=== PATIENT | male | born 1990 | race Caucasian/White ===

== ENCOUNTER 2018-03-30 18:27 | Inpatient (IN) | payer BC, OTHER ==
[~2018-03-30] VITALS: Ht 177.8 cm; Wt 129.9 kg
[2018-03-30] MEDS ORDERED: SODIUM CHLORIDE 0.9% 500ML 500 ML IV STA (18:41)
[2018-03-30 19:03] LABS: BASO % 0.2 %; BASO ABS # 0.03 K/uL (0-0.2); EOS % 0.4 %; EOS ABS # 0.07 K/uL (0-0.5); HEMATOCRIT 43.4 % (42-52); HEMOGLOBIN 15.5 g/dL (14.0-18.0); IG# 0.05 K/uL (0.00-0.02); LYMPH % 13.3 %; MEAN CELL VOLUME 86.1 fL (80-100); MEAN CORPUSCULAR HEMOGLOBIN 30.8 pg (25-34); MEAN CORPUSCULAR HGB CONC 35.7 g/dl (32-36); MEAN PLATELET VOLUME 10.9 fL (7.4-10.4); MONO % 6.9 %; MONO ABS # 1.15 K/uL (0.11-0.59); NEUT % 78.9 %; NEUT ABS # 13.09 K/uL (1.4-6.5); PLATELET COUNT 265 K/uL (130-400); RED CELL DISTRIBUTION WIDTH CV 13.3 % (11.5-14.5); RED CELL DISTRIBUTION WIDTH SD 41.5 fL (36.4-46.3); WHITE BLOOD COUNT 16.59 K/uL (4.8-10.8)
--- NOTE | 2018-03-30 19:16 | EMERGENCY ROOM VISIT NOTE ---
History Report prepared by Filemon: Audra Beckham Under the Supervision of: Dr. Octaviaon Draper M.D. First contact with patient: 18:31 Chief Complaint: ABDOMINAL PAIN Stated Complaint: STOMACH PAIN History of Present Illness The patient is a 27 year old male who presents to the Emergency Room with complaints of constant abdominal pain starting around 13 hours ago. The patient was in [place] visiting a friend. He was roused from sleep by mid to right upper abdominal pain at 0500 this morning. The pain has been constant throughout the day. He went to [facility] where he had imaging which showed numerous gallstones and the doctors recommended removal. The patient decided to come here so he could be closer to home. The pain was a 10/10 at its worst. It did go through to his back. He was given Oxycodone for the trip here. He currently rates his discomfort as a 6/10 with the pain medications. He tried self induced vomiting to no significant relief. He denies any diarrhea or urinary symptoms. He denies any history of gallbladder issues. He has not noticed any discomfort with eating fatty foods. He denies any other medical problems or abdominal surgeries. He does not smoke. He last ate 18 hours ago. Results from [facility] show that around 0930 this morning, the patient had a white count of 12.5, hemoglobin of 16.1, an undetectable troponin. He had a mild elevation of his ALT at 58. Lipase was normal, glucose 115, creatinine 0.98, total bilirubin 0.4, alk phos 48. Urinalysis was negative for infection. Ultrasound of gallbladder showed gallstones and gallbladder distension. CT abdomen/pelvis showed no acute problems. He was seen by the ED physician and general surgeon at [facility]. He was not admitted and was discharged from the ED. He also had an EKG and chest X-ray which were unremarkable. Source of History: patient Onset: 13 hours ago Position: abdomen (RUQ) Symptom Intensity: 10/10 at worst Timing: constant Modifying Factors (Relieving): other (oxycodone) Associated Symptoms: + back pain, No diarrhea, No urinary symptoms Review of Systems See HPI for pertinent positives & negatives. A total of 10 systems reviewed and were otherwise negative. Past Medical & Surgical Medical Problems: (1) Symptomatic cholelithiasis Surgical Problems: (1) S/P tonsillectomy Family History No pertinent family history stated. Social History Smoking Status: Never Smoker Marital Status: Current/Historical Medications No Active Prescriptions or Reported Meds Allergies Coded Allergies: BEE STING (Verified Allergy, Intermediate, Hives/Swelling, 03/30/18) Physical Exam Vital Signs Date Time Temp Pulse Resp B/P (MAP) Pulse Ox O2 Delivery O2 Flow Rate FiO2 03/30/18 20:01 146/94 03/30/18 19:36 70 100 03/30/18 19:31 147/94 03/30/18 19:27 75 100 03/30/18 19:01 148/93 03/30/18 18:57 79 99 Room Air 03/30/18 18:55 22 151/96 03/30/18 18:42 159/96 03/30/18 18:29 36.8 81 16 169/98 100 Room Air Physical Exam GENERAL: Patient is in no acute distress. HEENT: No acute trauma, normocephalic atraumatic, mucous membranes moist, no nasal congestion, no scleral icterus. NECK: No stridor, no adenopathy, no meningismus, trachea is midline. LUNGS: Clear to auscultation bilaterally, no wheeze, no rhonchi, breath sounds equal. HEART: Without murmurs gallops or rubs, regular rate and rhythm. ABDOMEN: Soft, moderately tender in the epigastrium and RUQ, bowel sounds positive, no hernias, no peritonitis. EXTREMITIES: No cyanosis or edema, full range of motion of all the joints without pain or difficulty, no signs for acute trauma. NEUROLOGIC: Oriented x 3, no acute motor or sensory deficits, no focal weakness. SKIN: No rash, no jaundice, no diaphoresis. Medical Decision & Procedures Laboratory Results 03/30/18 18:45 Red Blood Count 5.04, Mean Corpuscular Volume 86.1, Mean Corpuscular Hemoglobin 30.8, Mean Corpuscular Hemoglobin Concent 35.7, Mean Platelet Volume 10.9, Neutrophils (%) (Auto) 78.9, Lymphocytes (%) (Auto) 13.3, Monocytes (%) (Auto) 6.9, Eosinophils (%) (Auto) 0.4, Basophils (%) (Auto) 0.2, Neutrophils # (Auto) 13.09, Lymphocytes # (Auto) 2.20, Monocytes # (Auto) 1.15, Eosinophils # (Auto) 0.07, Basophils # (Auto) 0.03 03/30/18 18:45 Test 03/30/18 18:45 White Blood Count 16.59 K/uL (4.8-10.8) Red Blood Count 5.04 M/uL (4.7-6.1) Hemoglobin 15.5 g/dL (14.0-18.0) Hematocrit 43.4 % (42-52) Mean Corpuscular Volume 86.1 fL (80-100) Mean Corpuscular Hemoglobin 30.8 pg (25-34) Mean Corpuscular Hemoglobin Concent 35.7 g/dl (32-36) Platelet Count 265 K/uL (130-400) Mean Platelet Volume 10.9 fL (7.4-10.4) Neutrophils (%) (Auto) 78.9 % Lymphocytes (%) (Auto) 13.3 % Monocytes (%) (Auto) 6.9 % Eosinophils (%) (Auto) 0.4 % Basophils (%) (Auto) 0.2 % Neutrophils # (Auto) 13.09 K/uL (1.4-6.5) Lymphocytes # (Auto) 2.20 K/uL (1.2-3.4) Monocytes # (Auto) 1.15 K/uL (0.11-0.59) Eosinophils # (Auto) 0.07 K/uL (0-0.5) Basophils # (Auto) 0.03 K/uL (0-0.2) RDW Standard Deviation 41.5 fL (36.4-46.3) RDW Coefficient of Variation 13.3 % (11.5-14.5) Immature Granulocyte % (Auto) 0.3 % Immature Granulocyte # (Auto) 0.05 K/uL (0.00-0.02) Anion Gap 6.0 mmol/L (3-11) Est Creatinine Clear Calc Drug Dose 152.4 ml/min Estimated GFR () 120.5 Estimated GFR (Non- 103.9 BUN/Creatinine Ratio 13.2 (10-20) Calcium Level 9.1 mg/dl (8.5-10.1) Total Bilirubin 0.9 mg/dl (0.2-1) Aspartate Amino Transf (AST/SGOT) 254 U/L (15-37) Alanine Aminotransferase (ALT/SGPT) 339 U/L (12-78) Alkaline Phosphatase 63 U/L (45-117) Total Protein 8.1 gm/dl (6.4-8.2) Albumin 4.1 gm/dl (3.4-5.0) Globulin 4.0 gm/dl (2.5-4.0) Albumin/Globulin Ratio 1.0 (0.9-2) Lipase 179 U/L (73-393) Laboratory results reviewed by me. Medications Administered Medications (Trade) Dose Ordered Sig/Nick Route Start Time Stop Time Status Last Admin Dose Admin Sodium Chloride 500 ml @ 999 mls/hr Q31M STAT IV 03/30/18 18:41 03/30/18 19:11 DC 03/30/18 18:54 999 MLS/HR Morphine Sulfate (MoRPHine SULFATE INJ) 4 mg Q15M PRN IV 03/30/18 19:45 03/30/18 21:48 DC 03/30/18 20:01 4 MG Ondansetron HCl (Zofran Inj) 4 mg NOW STAT IV 03/30/18 19:33 03/30/18 19:34 DC 03/30/18 19:59 4 MG ED Course 183: The patient was evaluated in room C10. A complete history and physical exam was performed. 1840: Sodium Chloride 500 ml @ 999 mls/hr IV. 1911: I discussed the patient's case with Weston Donis PA-C [facility] general surgery. The patient will be evaluated for further management. 1917: Upon reexamination the patient is resting comfortably. I discussed results and treatment plan with the patient. He verbalizes agreement and understanding. The patient will be evaluated for further management. 1931: The patient is requesting pain medications. 1932: Zofran Inj 4 mg IV. 1943: Surgery is here evaluating the patient. I spoke with them. 1944: Morphine Sulfate 4 mg IV. Medical Decision Differential diagnoses considered include biliary colic, acute cholecystitis, pancreatitis, renal colic, UTI, pneumonia, appendicitis. There is a leukocytosis at 16,000, this could be consistent with infection or just his pain. Of note, the white count has increased from earlier today. There is no significant electrolyte abnormality or kidney failure. There was elevation to the AST and ALT, these numbers have increased from earlier today as well. No evidence for pancreatitis by our testing. Patient did receive IV saline, IV morphine and IV Zofran. I did speak with on- call general surgery. The patient was evaluated in this ER by surgery and will be brought into the hospital for eventual cholecystectomy. He is suffering from ongoing biliary colic. Medication Reconcilliation Current Medication List: was personally reviewed by me Blood Pressure Screening Patient's blood pressure: Elevated blood pressure Referred Consults Time Called: 1838 Consulting Physician[facility] Returned Call: 1911 I discussed the patient's case with him. The patient will be evaluated for further management. Impression Primary Impression: Biliary colic Additional Impressions: Liver enzyme elevation Leukocytosis Scribe Attestation The scribe's documentation has been prepared under my direction and personally reviewed by me in its entirety. I confirm that the note above accurately reflects all work, treatment, procedures, and medical decision making performed by me. Departure Information Dispostion Being Evaluated By Surgeon Prescriptions No Active Prescriptions or Reported Meds Referrals Jelani Alegria M.D. (PCP) Patient Instructions My [facility] Problem Qualifiers
[2018-03-30 19:21] LABS: ALBUMIN 4.1 gm/dl (3.4-5.0); CALCIUM 9.1 mg/dl (8.5-10.1); CREATININE 0.99 mg/dl (0.60-1.40); POTASSIUM 3.8 mmol/L (3.5-5.1)
[2018-03-30 19:23] LABS: TOTAL PROTEIN 8.1 gm/dl (6.4-8.2)
[2018-03-30] MEDS ORDERED: ONDANSETRON INJ 2 MG/ML 2 ML VIAL IV STA (19:33)
[2018-03-30] MEDS ORDERED: MoRPHine SULFATE 4 MG/ML 1 ML CARP\\VIAL IV PRN (19:45)
--- NOTE | 2018-03-30 20:13 | Surgery Consultation ---
Consultation Date of Consultation: Mar 30, 2018. Attending Physician: Reason for Consultation: RUQ pain History of Present Illness patient is a 29M who presented to [facility] earlier today. He was found to have symptomatic cholelithiasis but was discharged home as he is from this area, his pain was controlled and he preferred to follow-up with a surgeon in town here. He presented to the ED this evening due to continued RUQ pain. Denies vomiting but states he has felt a little nauseated. Reports some off and on fever/chills. Denies recent illness. He is moving his bowels and urinating without issue. Denies history of previous abdominal surgeries. Denies use of blood thinning or anticoagulant medications. FHx positive for gallbladder disease (father). Now that he thinks about it he feels he may have had more mild gallbladder episodes in the past. WBC 16.59. AST 254, ALT 339. All other labs WNL. RUQ U/S at [facility] shows multiple gallstones without evidence of acute cholecystitis. Past Medical/Surgical History Medical Problems: (1) Biliary colic Status: Acute (2) Leukocytosis Status: Acute (3) Liver enzyme elevation Status: Acute Social History Smoking Status: Never Smoker Marital Status: Allergies Coded Allergies: BEE STING (Verified Allergy, Intermediate, Hives/Swelling, 03/30/18) Home Medications No Active Prescriptions or Reported Meds Current Inpatient Medications Current Inpatient Medications Medications (Trade) Dose Ordered Sig/Nick Route Start Time Stop Time Status Last Admin Dose Admin Morphine Sulfate (MoRPHine SULFATE INJ) 4 mg Q15M PRN IV 03/30/18 19:45 04/13/18 19:44 03/30/18 20:01 4 MG Review of Systems Constitutional: + fever, + chills Respiratory: No shortness of breath Cardiovascular: No chest pain Abdomen: + pain (RUQ), + nausea, No vomiting, No diarrhea, No constipation Genitourinary - Male: No dysuria Physical Exam Date Time Temp Pulse Resp B/P (MAP) Pulse Ox O2 Delivery O2 Flow Rate FiO2 03/30/18 19:31 147/94 03/30/18 19:27 75 100 03/30/18 19:01 148/93 03/30/18 18:57 79 99 Room Air 03/30/18 18:55 22 151/96 4/30/18 18:42 159/96 03/30/18 18:29 36.8 81 16 169/98 100 Room Air General Appearance: WD/WN, no apparent distress Head: normocephalic, atraumatic ENT: hearing grossly normal Respiratory/Chest: no respiratory distress, no accessory muscle use Abdomen/GI: soft, no organomegaly, no pulsatile mass, + tenderness Neurologic/Psych: alert, normal mood/affect, oriented x 3 Skin: normal color, warm/dry Laboratory Results Last 24 Hours Test 03/30/18 18:45 White Blood Count 16.59 K/uL Red Blood Count 5.04 M/uL Hemoglobin 15.5 g/dL Hematocrit 43.4 % Mean Corpuscular Volume 86.1 fL Mean Corpuscular Hemoglobin 30.8 pg Mean Corpuscular Hemoglobin Concent 35.7 g/dl Platelet Count 265 K/uL Mean Platelet Volume 10.9 fL Neutrophils (%) (Auto) 78.9 % Lymphocytes (%) (Auto) 13.3 % Monocytes (%) (Auto) 6.9 % Eosinophils (%) (Auto) 0.4 % Basophils (%) (Auto) 0.2 % Neutrophils # (Auto) 13.09 K/uL Lymphocytes # (Auto) 2.20 K/uL Monocytes # (Auto) 1.15 K/uL Eosinophils # (Auto) 0.07 K/uL Basophils # (Auto) 0.03 K/uL RDW Standard Deviation 41.5 fL RDW Coefficient of Variation 13.3 % Immature Granulocyte % (Auto) 0.3 % Immature Granulocyte # (Auto) 0.05 K/uL Sodium Level 137 mmol/L Potassium Level 3.8 mmol/L Chloride Level 104 mmol/L Carbon Dioxide Level 27 mmol/L Anion Gap 6.0 mmol/L Blood Urea Nitrogen 13 mg/dl Creatinine 0.99 mg/dl Est Creatinine Clear Calc Drug Dose 152.4 ml/min Estimated GFR () 120.5 Estimated GFR (Non- 103.9 BUN/Creatinine Ratio 13.2 Random Glucose 99 mg/dl Calcium Level 9.1 mg/dl Total Bilirubin 0.9 mg/dl Aspartate Amino Transf (AST/SGOT) 254 U/L Alanine Aminotransferase (ALT/SGPT) 339 U/L Alkaline Phosphatase 63 U/L Total Protein 8.1 gm/dl Albumin 4.1 gm/dl Globulin 4.0 gm/dl Albumin/Globulin Ratio 1.0 Lipase 179 U/L Assessment & Plan Symptomatic cholelithiasis, possible early acute appendicitis. Symptoms seem to be related to gallbladder. Elevated LFTs concerning for possible CBD stones. Will admit overnight and recheck LFTs in AM. If further elevation may consider GI consult for possible MRCP/ERCP If no further elevation or decrease in LFTs, Plan for laparoscopic cholecystectomy, possible intraoperative cholangiogram, possible open with Dr. Mills tomorrow. Risks, benefits, alternatives to the procedure were discussed - all questions answered. Admit med/surg, NPO after midnight, IV fluids, IV Mefoxin 2g Q6H, pain medication prn, anti-emetics prn, SCDs. OR notified. Findings discussed with Dr. Mills. Please contact with questions or concerns.
[2018-03-30] MEDS ORDERED: ONDANSETRON INJ 2 MG/ML 2 ML VIAL IV PRN (20:15)
[2018-03-30] MEDS ORDERED: HYDROmorphone INJ 0.5 MG/0.5 ML SYR IV PRN (20:15)
[2018-03-30 21:38] VITALS: BP 138/81; PULSE 78; TEMP 36.8; O2SAT 100; Ht 177.8 cm; Wt 129.9 kg
[2018-03-30] MEDS: SODIUM CHLORIDE 0.9% 1000ML 1,000 ML IV SCH (22:12)
[2018-03-30] MEDS: ACETAMINOPHEN IV 1,000 MG in EMPTY BAG 0 ML IV SCH (22:29)
[2018-03-30 23:10] VITALS: BP 130/75; PULSE 65; TEMP 37; O2SAT 95
[2018-03-30] MEDS: CEFOXITIN IV 2,000 MG in DEXTROSE 5% 50ML 50 ML IV SCH (23:31)
[2018-03-31] MEDS: CEFOXITIN IV 2,000 MG in DEXTROSE 5% 50ML 50 ML IV SCH ×3 (04:12→15:42)
[2018-03-31 05:20] LABS: BASO % 0.3 %; BASO ABS # 0.03 K/uL (0-0.2); EOS % 3.6 %; EOS ABS # 0.38 K/uL (0-0.5); HEMATOCRIT 41.1 % (42-52); HEMOGLOBIN 14.4 g/dL (14.0-18.0); IG# 0.03 K/uL (0.00-0.02); LYMPH % 25.4 %; LYMPH ABS # 2.69 K/uL (1.2-3.4); MEAN CELL VOLUME 86.9 fL (80-100); MEAN CORPUSCULAR HEMOGLOBIN 30.4 pg (25-34); MEAN PLATELET VOLUME 10.8 fL (7.4-10.4); MONO % 7.4 %; MONO ABS # 0.79 K/uL (0.11-0.59); NEUT ABS # 6.69 K/uL (1.4-6.5); PLATELET COUNT 248 K/uL (130-400); RED CELL DISTRIBUTION WIDTH CV 13.4 % (11.5-14.5); RED CELL DISTRIBUTION WIDTH SD 42.3 fL (36.4-46.3); WHITE BLOOD COUNT 10.61 K/uL (4.8-10.8)
[2018-03-31] MEDS: ACETAMINOPHEN IV 1,000 MG in EMPTY BAG 0 ML IV SCH ×3 (05:39→22:04)
[2018-03-31 05:56] LABS: ALBUMIN 3.4 gm/dl (3.4-5.0); CALCIUM 8.7 mg/dl (8.5-10.1); CREATININE 1.51 mg/dl (0.60-1.40); POTASSIUM 3.8 mmol/L (3.5-5.1)
[2018-03-31 06:04] LABS: TOTAL PROTEIN 6.8 gm/dl (6.4-8.2)
[2018-03-31 07:06] VITALS: BP 119/75; PULSE 61; TEMP 36.8; O2SAT 95
[2018-03-31] MEDS: SODIUM CHLORIDE 0.9% 1000ML 1,000 ML IV SCH ×3 (08:04→22:04)
--- NOTE | 2018-03-31 13:43 | Surgery Progress Note ---
Surgery Progress Note Date of Service March 31, 2018. Subjective pt still having upper abdominal pain but it has improved since admission. starting to feel hungry. Objective Vital Signs: Date Time Temp Pulse Resp B/P (MAP) Pulse Ox O2 Delivery O2 Flow Rate FiO2 03/31/18 07:50 Room Air 03/31/18 07:06 36.8 61 18 119/75 (90) 95 Room Air 03/30/18 23:30 Room Air 03/30/18 23:10 37.0 65 18 130/75 (93) 95 Room Air 03/30/18 21:38 36.8 78 16 138/81 (100) 100 Room Air 03/30/18 21:38 Room Air 03/30/18 21:06 72 98 03/30/18 21:01 127/106 03/30/18 20:41 72 18 99 03/30/18 20:32 142/84 03/30/18 20:11 65 100 03/30/18 20:06 73 20 98 Room Air 03/30/18 20:01 146/94 03/30/18 19:36 70 100 03/30/18 19:31 147/94 03/30/18 19:27 75 100 03/30/18 19:01 148/93 03/30/18 18:57 79 99 Room Air 03/30/18 18:55 22 151/96 03/30/18 18:42 159/96 03/30/18 18:29 36.8 81 16 169/98 100 Room Air General Appearance: no apparent distress Head: atraumatic Neck: supple, trachea midline Respiratory/Chest: no respiratory distress, no accessory muscle use Abdomen: non distended, soft, + pertinent finding (minimal RUQ and epigastric tenderness) Laboratory Results: Results Past 24 Hours Test 03/30/18 18:45 03/31/18 04:52 Range/Units White Blood Count 16.59 10.61 4.8-10.8 K/uL Red Blood Count 5.04 4.73 4.7-6.1 M/uL Hemoglobin 15.5 14.4 14.0-18.0 g/dL Hematocrit 43.4 41.1 42-52 % Mean Corpuscular Volume 86.1 86.9 80-100 fL Mean Corpuscular Hemoglobin 30.8 30.4 25-34 pg Mean Corpuscular Hemoglobin Concent 35.7 35.0 32-36 g/dl Platelet Count 265 248 130-400 K/uL Mean Platelet Volume 10.9 10.8 7.4-10.4 fL Neutrophils (%) (Auto) 78.9 63.0 % Lymphocytes (%) (Auto) 13.3 25.4 % Monocytes (%) (Auto) 6.9 7.4 % Eosinophils (%) (Auto) 0.4 3.6 % Basophils (%) (Auto) 0.2 0.3 % Neutrophils # (Auto) 13.09 6.69 1.4-6.5 K/uL Lymphocytes # (Auto) 2.20 2.69 1.2-3.4 K/uL Monocytes # (Auto) 1.15 0.79 0.11-0.59 K/uL Eosinophils # (Auto) 0.07 0.38 0-0.5 K/uL Basophils # (Auto) 0.03 0.03 0-0.2 K/uL RDW Standard Deviation 41.5 42.3 36.4-46.3 fL RDW Coefficient of Variation 13.3 13.4 11.5-14.5 % Immature Granulocyte % (Auto) 0.3 0.3 % Immature Granulocyte # (Auto) 0.05 0.03 0.00-0.02 K/uL Sodium Level 137 139 136-145 mmol/L Potassium Level 3.8 3.8 3.5-5.1 mmol/L Chloride Level 104 107 98-107 mmol/L Carbon Dioxide Level 27 27 21-32 mmol/L Anion Gap 6.0 5.0 3-11 mmol/L Blood Urea Nitrogen 13 13 7-18 mg/dl Creatinine 0.99 1.51 0.60-1.40 mg/dl Est Creatinine Clear Calc Drug Dose 152.4 99.5 ml/min Estimated GFR () 120.5 72.3 Estimated GFR (Non- 103.9 62.4 BUN/Creatinine Ratio 13.2 8.9 10-20 Random Glucose 99 104 70-99 mg/dl Calcium Level 9.1 8.7 8.5-10.1 mg/dl Total Bilirubin 0.9 1.5 0.2-1 mg/dl Aspartate Amino Transf (AST/SGOT) 254 260 15-37 U/L Alanine Aminotransferase (ALT/SGPT) 339 428 12-78 U/L Alkaline Phosphatase 63 69 45-117 U/L Total Protein 8.1 6.8 6.4-8.2 gm/dl Albumin 4.1 3.4 3.4-5.0 gm/dl Globulin 4.0 2.5-4.0 gm/dl Albumin/Globulin Ratio 1.0 0.9-2 Lipase 179 73-393 U/L Direct Bilirubin 0.4 0-0.2 mg/dl Microbiology Results 03/30/18 MRSA DNA Surveillance Screen - Final, Complete Specimen Negative for MRSA by DNA Probe Assessment & Plan symptomatic gallstones Tbili increased today so will put a hold on lap fritz MRCP today GI consult. pending labs and MRCP may need ERCP prior to lap fritz rec lap fritz prior to d/c.
--- NOTE | 2018-03-31 15:21 | DIAGNOSTIC IMAGING REPORT ---
MRCP CLINICAL HISTORY: Cholelithiasis. COMPARISON STUDY: No priors. TECHNIQUE: Abdominal MRCP is performed utilizing various T2-weighted sequences in the axial and coronal planes. IV contrast was not administered for this examination. 3-D reformats are created and assessed. FINDINGS: There are numerous gallstones identified within the gallbladder lumen. Stones appear to be lodged in the region of the gallbladder neck. The gallbladder is distended, and there is gallbladder wall thickening and edema. Trace pericholecystic fluid is noted. The appearance is consistent with acute cholecystitis. There is no intra or extrahepatic biliary ductal dilatation. The common bile duct measures up to 3 mm in diameter. There are no filling defects to suggest choledocholithiasis. The pancreatic duct is normal in caliber and barely discernible. The liver is enlarged, measuring 20 cm in length. Hepatic steatosis is suggested. The spleen, pancreas, kidneys, and adrenal glands are grossly normal. There is no abdominal ascites or pleural effusion. No abdominal lymphadenopathy is identified. The abdominal aorta is normal in caliber. The imaged osseous structures demonstrate normal marrow signal intensity. IMPRESSION: 1. Cholelithiasis with evidence of acute cholecystitis. 2. There is no intra or extrahepatic biliary ductal dilatation, and no evidence of choledocholithiasis. 3. Hepatomegaly and suspect hepatic steatosis. Electronically signed by: Octaviano Braxton M.D. 03/31/2018 3:20 PM Dictated Date/Time: 03/31/2018 3:16 PM
[2018-03-31 15:33] VITALS: BP 123/75; PULSE 75; TEMP 37.2; O2SAT 95
--- NOTE | 2018-03-31 16:29 | Progress Note ---
Progress Note Date of Service March 31, 2018. Progress Note feeling better this afternoon MRCP negative for filling defect will plan for lap fritz in AM, possible IOC depending on AM labs
[2018-03-31] MEDS: HYDROmorphone INJ 2 MG/ML SYR/VIAL IV PRN ×2 (18:08→22:09)
--- NOTE | 2018-03-31 21:05 | GASTROINTESTINAL CONSULTATION ---
DATE OF CONSULTATION: 03/31/2018 REASON FOR EVALUATION: Cholecystitis with abnormal liver tests. HISTORY OF PRESENT ILLNESS: The patient is a 27-year-old who presented to the Emergency Room after being seen previously in the [place] [facility] with acute onset right upper quadrant pain that awakened him from sleep at 5:00 in the morning. Pain was constant throughout the day. In the Emergency Room at [place], he was found to have numerous gallstones in his gallbladder. His common bile duct was 3 mm in diameter and his liver tests showed a slightly elevated ALT and AST, but a normal alkaline phosphatase. The ultrasound also showed somewhat of a fatty liver. A cholecystectomy was recommended, but because the patient lives in [facility], he requested to be discharged to have the surgery done here. He has been admitted to the hospital and underwent an MRCP, which showed numerous gallstones in the gallbladder and some of them jammed in the neck of the gallbladder with findings of acute cholecystitis, common bile duct is only 3 mm, but there are no filling defects to suggest common bile duct stones. Since being hospitalized, the patient has been started on IV antibiotics. PAST MEDICAL HISTORY: Much remarkable for tonsillectomy. MEDICATIONS: None. ALLERGIES: BEE STINGS. FAMILY HISTORY: Positive for gallstones in his father. SOCIAL HISTORY: Patient is , does not smoke. REVIEW OF SYSTEMS: Negative for 12 systems. PHYSICAL EXAMINATION: GENERAL: Patient is overweight, in no acute distress. VITAL SIGNS: Blood pressure is 146/94, pulse 70, room air oxygen saturation is 100%. ABDOMEN: Shows tenderness in the right upper quadrant with positive Cheek sign. LABORATORY DATA: Show white count of 16.59, hemoglobin 15.5, platelets 265,000. Liver profile showed a bilirubin of 0.9, AST 254, ALT 339, alkaline phosphatase 63. IMPRESSION: The patient has acute cholecystitis without any common bile duct stones. The elevated transaminases could be from just the infection and alone or his fatty liver as well. There is no indication for a preoperative ERCP at this time. The patient will continue on his IV antibiotics and surgery is planned for tomorrow. We have no further input and no further suggestions at this time. Please call us if you need any further GI input.
[2018-03-31 23:08] VITALS: BP 114/69; PULSE 74; TEMP 37.1; O2SAT 94
[2018-04-01] VITALS (9 sets, daily range): BP systolic 108–137; BP diastolic 64–85; PULSE 66–99; TEMP 36.7–37.1; O2SAT 93–98
[2018-04-01] MEDS: SODIUM CHLORIDE 0.9% 1000ML 1,000 ML IV SCH ×2 (04:41→11:07)
[2018-04-01 05:22] LABS: BASO % 0.4 %; BASO ABS # 0.04 K/uL (0-0.2); EOS ABS # 0.41 K/uL (0-0.5); HEMOGLOBIN 13.8 g/dL (14.0-18.0); IG# 0.03 K/uL (0.00-0.02); LYMPH % 29.2 %; LYMPH ABS # 2.99 K/uL (1.2-3.4); MEAN CELL VOLUME 87.5 fL (80-100); MEAN CORPUSCULAR HEMOGLOBIN 30.2 pg (25-34); MEAN CORPUSCULAR HGB CONC 34.5 g/dl (32-36); MEAN PLATELET VOLUME 10.8 fL (7.4-10.4); MONO % 10.1 %; MONO ABS # 1.04 K/uL (0.11-0.59); NEUT ABS # 5.74 K/uL (1.4-6.5); PLATELET COUNT 250 K/uL (130-400); RED CELL DISTRIBUTION WIDTH CV 13.3 % (11.5-14.5); RED CELL DISTRIBUTION WIDTH SD 42.4 fL (36.4-46.3); WHITE BLOOD COUNT 10.25 K/uL (4.8-10.8)
[2018-04-01] MEDS: ACETAMINOPHEN IV 1,000 MG in EMPTY BAG 0 ML IV SCH (05:35)
[2018-04-01 05:52] LABS: ALBUMIN 3.3 gm/dl (3.4-5.0); CALCIUM 8.6 mg/dl (8.5-10.1); CREATININE 0.97 mg/dl (0.60-1.40); POTASSIUM 4.1 mmol/L (3.5-5.1)
[2018-04-01 05:54] LABS: TOTAL PROTEIN 6.8 gm/dl (6.4-8.2)
[2018-04-01] MEDS ORDERED: EpHEDrine SULFATE INJ 50 MG/ML AMP IV PRN (06:30)
[2018-04-01] MEDS ORDERED: PROMETHAZINE HCL INJ 12.5 MG in SODIUM CHLORIDE 0.9% 50ML 50 ML IV PRN (06:30)
[2018-04-01] MEDS ORDERED: ATROPINE SULFATE 0.1 MG/ML 5ML SYR IV PRN (06:30)
[2018-04-01] MEDS ORDERED: ONDANSETRON INJ 2 MG/ML 2 ML VIAL IV PRN ×2 (06:30→08:45)
[2018-04-01] MEDS ORDERED: FENTANYL CITRATE INJ 50 MCG/1 ML 2 ML VIAL IV PRN (06:30)
[2018-04-01] MEDS ORDERED: HYDROmorphone INJ 2 MG/ML SYR/VIAL IV PRN (06:30)
--- NOTE | 2018-04-01 06:53 | History & Physical Bridge Note ---
H&P Re-Evaluation Bridge Note: I have examined the patient, reviewed the History & Physical and in the interval since the performance of the History & Physical I have noted the following changes of clinical significance: No changes noted MRCP only shows acute fritz. plan lap fritz. discussed options/risks ( bleeding/infection/dvt/pe/injury to an organ/bile leaks etc..) questions answered. will proceed with lap fritz today.
[2018-04-01] MEDS ORDERED: GLYCOPYRROLATE INJ 0.2 MG/ML VIAL ONE (07:01)
[2018-04-01] MEDS ORDERED: PROPOFOL IV EMULSION 10 MG/ML 20 ML VIAL ONE (07:01)
[2018-04-01] MEDS ORDERED: LIDOCAINE HCL 2% 2 ML VIAL (20MG/ML) ONE (07:01)
[2018-04-01] MEDS ORDERED: NEOSTIGMINE METHYLSULFATE 5 MG/5 ML SYR ONE (07:01)
[2018-04-01] MEDS ORDERED: SUCCINYLCHOLINE CHLORIDE 20 MG/ML 10 ML VIAL IV ONE (07:01)
[2018-04-01] MEDS ORDERED: DEXAMETHASONE SOD INJ 4 MG/ML VIAL ONE (07:01)
[2018-04-01] MEDS ORDERED: PHENYLEPHRINE HCL INJ 10 MG/ML VIAL ONE (07:01)
[2018-04-01] MEDS ORDERED: ONDANSETRON INJ 2 MG/ML 2 ML VIAL ONE (07:01)
[2018-04-01] MEDS ORDERED: EpHEDrine SULFATE INJ 50 MG/ML AMP ONE (07:01)
[2018-04-01] MEDS ORDERED: FENTANYL CITRATE INJ 50 MCG/1 ML 2 ML VIAL ONE (07:02)
[2018-04-01] MEDS ORDERED: MIDAZOLAM HCL 1 MG/ML 2ML VIAL ONE (07:02)
[2018-04-01] MEDS ORDERED: HYDR-5688 PO (07:04)
[2018-04-01] MEDS ORDERED: BUPIVACAINE/EPINEPHRINE 0.5% MPF 1:200,000 30 ML VIAL ONE (07:05)
--- NOTE | 2018-04-01 07:08 | Discharge Instructions ---
Discharge Instructions Date of Service April 01, 2018. Admission Reason for Admission: Symptomatic Cholelithiasis Discharge Discharge Diagnosis / Problem: Symptomatic Cholelithiasis Discharge Goals Goal(s): Decrease discomfort, Improve function Activity Recommendations Activity Limitations: as noted below Lifting Limitations: no more than 10 pounds Exercise/Sports Limitations: until after follow-up appointment May Resume Sexual Activity: after follow-up appointment Shower/Bathe: tomorrow Driving or Machine Use: resume 1 day after discharge . Instructions / Follow-Up Instructions / Follow-Up You have surgical glue, Dermabond, over your incisions. You may shower tomorrow , but please do not soak or scrub your incisions. Please follow-up with Dr. Mills in the General Surgery Clinic in 1-2 weeks. Please call the General Surgery Clinic at [phone] to make this follow-up appointment. Please call the General Surgery Clinic with any questions or concerns. Current Hospital Diet Patient's current hospital diet: Clear Liquid Diet Discharge Diet Recommended Diet: Regular Diet Pending Studies Studies pending at discharge: yes List of pending studies: Pathology report. Medical Emergencies . Who to Call and When: Medical Emergencies: If at any time you feel your situation is an emergency, please call 911 immediately. . Non-Emergent Contact Non-Emergency issues call your: Primary Care Provider, Surgeon Call Non-Emergent contact if: temperature is above 101.5, your pain is not controlled, wound has increased drainage, wound has increased redness . "Provider Documentation" section prepared by Marybeth Tapia. .
[2018-04-01] MEDS ORDERED: HYDROmorphone INJ 2 MG/ML SYR/VIAL ONE (07:43)
--- NOTE | 2018-04-01 08:24 | [facility] Operative Report ---
Operative Report Operative Date April 01, 2018. Pre-Operative Diagnosis Acute Cholecystitis Post-Operative Diagnosis Same as preoperative. Procedure(s) Performed Laparoscopic Cholecystectomy Surgeon Dr. Herson Mills Dental Technician Surgeon(s) Marybeth Tapia PA-C Estimated Blood Loss 20ml Specimens A.) Gallbladder and contents Anesthesia Type General Complication(s) none Description of Procedure After informed consent was obtained the patient was taken to the operating room and placed in the supine position. After successful intubation the abdomen was sterilely prepped and draped in usual fashion. A periumbilical incision was made with an 11 blade scalpel and carried down through the soft tissue using electrocautery. The anterior rectus fascia was opened using electrocautery and 2 #0 Vicryl stay sutures were placed. The peritoneum was elevated with hemostats and incised under direct vision using Metzenbaum scissors. A finger sweep was performed and a 12 mm Ann trocar was placed. The abdomen was insufflated to 18 mmHg. The laparoscope was inserted and the abdomen was examined in 360. No gross abnormalities were identified. A subxiphoid 5 mm port and 2 right upper quadrant 5 mm ports were placed under direct vision. The patient was placed in a reverse Trendelenburg position and slightly airplaned to the left. The gallbladder was acutely inflammed. I had to use a needle to decompress it so I could grasp it. The gallbladder was grasped and elevated superiorly and laterally. A [place] dissector was used to take down adhesions around the neck of the gallbladder. The cystic duct was identified and skeletonized. It was clipped twice proximally and once distally and transected using a laparoscopic scissor. In similar fashion the cystic artery was identified and skeletonized clipped and divided. The gallbladder was removed from the gallbladder fossa with electrocautery. It was placed into an Endo Catch bag. Thorough irrigation was performed. At the end of the procedure there was adequate hemostasis and no evidence of any bile leaks. A final look around the abdomen showed no other abnormalities. Because of some mild oozing, a piece of surgicel was placed into the gallbladder fossa. The gallbladder and trochars were all removed and the abdomen was desufflated. The fascia of the camera port was closed using 0 Vicryl in a [id number] fashion. All the wounds were irrigated and closed using 4-0 Monocryl. Marcaine was injected around them for postoperative analgesia and skin glue used as a dressing. The patient was awaken extubated and transferred to recovery in stable condition. My physician's assistant press operator offset was present throughout the entire case. She helped with prepping the patient. With exposure for trocar placement. She retracted the gallbladder throughout the case. She also assisted with wound closure and dressing placement. I attest to the content of the Intraoperative Record and any orders documented therein. Any exceptions are noted below.
[2018-04-01] MEDS ORDERED: HYDROCODONE/ACETAMIN 5/325MG TAB PO PRN (08:45)
[2018-04-01] MEDS ORDERED: MoRPHine SULFATE 2 MG/ML CARP IV PRN ×2 (08:45)
[2018-04-01] MEDS ORDERED: ACETAMINOPHEN IV 100 ML IV PRN (08:45)
--- NOTE | 2018-04-01 09:14 | Anesthesiology Progress Note ---
Anesthesia Post Op Note Date & Time April 01, 2018 at 09:14 Vital Signs Pain Intensity: 4 Vital Signs Past 12 Hours Date Time Temp Pulse Resp B/P (MAP) Pulse Ox O2 Delivery O2 Flow Rate FiO2 04/01/18 09:05 80 14 134/76 97 Nasal Cannula 2 04/01/18 08:55 88 16 133/87 100 Oxymask 10 04/01/18 08:45 36.3 94 16 138/87 97 Oxymask 10 04/01/18 05:59 36.7 68 18 115/72 (86) 98 Room Air 03/31/18 23:40 Room Air 03/31/18 23:08 37.1 74 18 114/69 (84) 94 Room Air Notes Mental Status: alert / awake / arousable, participated in evaluation Pt Amnestic to Procedure: Yes Nausea / Vomiting: adequately controlled Pain: adequately controlled Airway Patency, RR, SpO2: stable & adequate BP & HR: stable & adequate Hydration State: stable & adequate Anesthetic Complications: no major complications apparent
[2018-04-01] MEDS: HYDROCODONE/ACETAMIN 5/325MG TAB PO PRN ×2 (13:26→23:25)
[2018-04-01] MEDS ORDERED: NURSING VERBAL MED ORDER ONE (15:15)
[2018-04-01] MEDS: CEFOXITIN IV 2,000 MG in DEXTROSE 5% 50ML 50 ML IV SCH ×2 (16:25→21:24)
[2018-04-01] MEDS: MoRPHine SULFATE 2 MG/ML CARP IV PRN ×2 (16:27→20:14)
[2018-04-02 03:30] VITALS: BP 111/68; PULSE 71; TEMP 36.7; O2SAT 96
[2018-04-02] MEDS: CEFOXITIN IV 2,000 MG in DEXTROSE 5% 50ML 50 ML IV SCH ×2 (03:52→09:49)
--- NOTE | 2018-04-02 06:21 | Surgery Progress Note ---
Surgery Progress Note Date of Service April 02, 2018. Subjective Post OP Day: 1 + feeling well, + ambulating, + pain controlled, + diet (Tolerating regular diet ), No complaints, No bowel movement, No nausea, No vomiting Objective Vital Signs: Date Time Temp Pulse Resp B/P (MAP) Pulse Ox O2 Delivery O2 Flow Rate FiO2 04/02/18 03:30 36.7 71 18 111/68 (82) 96 Room Air 04/01/18 23:45 36.9 66 18 123/69 (87) 95 Room Air 04/01/18 23:15 Room Air 04/01/18 20:01 36.8 79 18 110/64 (79) 94 Room Air 04/01/18 16:00 Room Air 04/01/18 15:28 36.8 98 16 108/65 (79) 93 Room Air 04/01/18 13:05 36.7 82 18 113/71 (85) 96 Nasal Cannula 1.0 04/01/18 11:58 36.7 75 18 116/71 (86) 96 Nasal Cannula 1.0 04/01/18 11:18 99 18 137/85 (102) 94 Room Air 04/01/18 10:15 37.1 69 18 127/82 (97) 95 Nasal Cannula 2.0 04/01/18 09:50 98 Nasal Cannula 2.0 04/01/18 09:50 98 Nasal Cannula 2.0 04/01/18 09:35 76 16 127/71 98 Nasal Cannula 2 04/01/18 09:25 37 72 14 140/79 98 Nasal Cannula 2 04/01/18 09:15 88 20 136/83 97 Nasal Cannula 2 04/01/18 09:05 80 14 134/76 97 Nasal Cannula 2 04/01/18 08:55 88 16 133/87 100 Oxymask 10 04/01/18 08:45 36.3 94 16 138/87 97 Oxymask 10 General Appearance: WD/WN, no apparent distress Head: normocephalic, atraumatic Respiratory/Chest: no respiratory distress, no accessory muscle use Abdomen: non distended, soft, no organomegaly, + tenderness (incisional mild) Incision(s): clean, dry, intact Laboratory Results: Results Past 24 Hours Test 04/02/18 04:44 Range/Units Assessment & Plan POD #1 lap fritz Doing well. Abdomen soft, non-distended. Mild incisional pain (expected). Tolerating regular diet, No N/V. Urinating okay. Am labs pending. Probable d/c today if he continues to do well. Please contact with questions or concerns.
[2018-04-02 06:25] LABS: BASO % 0.1 %; BASO ABS # 0.02 K/uL (0-0.2); EOS % 0.7 %; EOS ABS # 0.12 K/uL (0-0.5); HEMATOCRIT 39.1 % (42-52); HEMOGLOBIN 13.6 g/dL (14.0-18.0); IG# 0.07 K/uL (0.00-0.02); LYMPH % 22.1 %; LYMPH ABS # 3.64 K/uL (1.2-3.4); MEAN CELL VOLUME 87.1 fL (80-100); MEAN CORPUSCULAR HEMOGLOBIN 30.3 pg (25-34); MEAN CORPUSCULAR HGB CONC 34.8 g/dl (32-36); MEAN PLATELET VOLUME 9.9 fL (7.4-10.4); MONO % 10.1 %; MONO ABS # 1.67 K/uL (0.11-0.59); NEUT % 66.6 %; NEUT ABS # 10.98 K/uL (1.4-6.5); PLATELET COUNT 252 K/uL (130-400); RED CELL DISTRIBUTION WIDTH SD 41.8 fL (36.4-46.3)
[2018-04-02 07:08] LABS: ALBUMIN 3.2 gm/dl (3.4-5.0); CALCIUM 8.8 mg/dl (8.5-10.1); POTASSIUM 3.8 mmol/L (3.5-5.1); TOTAL PROTEIN 6.7 gm/dl (6.4-8.2)
[2018-04-02 07:13] LABS: CREATININE 0.92 mg/dl (0.60-1.40)
[2018-04-02 07:53] VITALS: BP 130/76; PULSE 63; TEMP 36.7; O2SAT 97
[2018-04-02 08:09] VITALS: O2SAT 97
[2018-04-02 09:05] VITALS: BP 130/76; PULSE 63; TEMP 36.7; O2SAT 97
--- NOTE | 2018-04-08 14:30 | Discharge Summary ---
Discharge Summary Date of Service April 08, 2018. Admission Date/Reason Mar 30, 2018 at 20:04 Symptomatic Cholelithiasis. Discharge Date/Disposition April 02, 2018 Home Diagnosis Principal Diagnosis: Symptomatic Cholelithiasis Procedure(s) Performed Laparoscopic Cholecystectomy Consultations GI Consult, Dr. Jv Lott Admission Physical Exam As per Admitting History & Physical. Hospital Course Patient is a 29-year-old male who presented to [facility] earlier in the day. He was found to have symptomatic cholelithiasis but was discharged home as he is from this area, his pain was controlled and he preferred to follow-up with a surgeon in town here. He presented to the [facility] ED late in the day due to continued RUQ pain. Denies vomiting but states he has felt a little nauseated. Reports some off and on fever/chills. Denies recent illness. He is moving his bowels and urinating without issue. Denies history of previous abdominal surgeries. Denies use of blood thinning or anticoagulant medications. FHx positive for gallbladder disease (father). WBC 16.59. AST 254, ALT 339. All other labs WNL. RUQ U/S at [facility] shows multiple gallstones without evidence of acute cholecystitis. Patient was admitted to Med/Surg Floor for pain control and made NPO after midnight in anticipation for Laparoscopic Cholecystectomy in AM. Hospital Day #1 AM labs showed an increase in total bilirubin. Dr. Mills requested a consult from GI for possible ERCP- MRCP was ordered and showed 1. Cholelithiasis with evidence of acute cholecystitis. 2. There is no intra or extrahepatic biliary ductal dilatation, and no evidence of choledocholithiasis. 3. Hepatomegaly and suspect hepatic steatosis. Per GI consult, The patient has acute cholecystitis without any common bile duct stones. The elevated transaminases could be from just the infection and alone or his fatty liver as well. There is no indication for a preoperative ERCP at this time. The patient will continue on his IV antibiotics and surgery is planned for tomorrow. No further recommendations. Patient was taken to OR on Hospital Day #2 for Laparoscopic Cholecystectomy with Dr. Mills. Procedure and risks of procedure reviewed with patient. OK to proceed. Pre-Op Diagnosis- Acute Cholecystitis Post-Op Diagnosis- Acute Cholecystitis Post-operatively patient did well- vital signs remained stable. LFTs and Total bilirubin decreased. Patient was deemed eligible for discharge. Return precautions reviewed with patient. Both verbal and written discharge instructions provided to patient. Patient to follow-up in General Surgery Clinic in 1-2 weeks for post-operative evaluation. Discharge Instructions Please refer to the electronic Patient Visit Report (Discharge Instructions) for additional information.
== END 2018-04-02 13:00 | disposition home or self-care (01) | DRG 419 ==
LOC: C.EDB 18:29 → C.MSW 20:04 → ENRESERV 20:16
PROVIDERS: ADMIT Surgery; ATTEND Surgery
PROC: 0FT44ZZ Resection of Gallbladder, Percutaneous Endoscopic Approach (ICD-10-PCS; principal; 2018-04-01 07:15)
DX: K80.20 Calculus of gallbladder without cholecystitis without obstruction (principal); Z91.030 Bee allergy status